=== PATIENT | male | born 1985 | race Caucasian/White ===

== ENCOUNTER 2019-08-16 15:52 | Emergency (ER) | payer MEDICAID ==
[~2019-08-16] VITALS: Ht 167.6 cm; Wt 63.3 kg
[~2019-08-16 15:52] MED LIST: CLIN300C8 PO
[2019-08-16 15:55] VITALS: BP 153/109
--- NOTE | 2019-08-16 17:16 | NUR ---
REVIEW RN: PT TO ROOM FROM [facility]
[2019-08-16] MEDS ORDERED: HYDROcodone/APAP 5/325 TABLET ONE (17:44)
[2019-08-16] MEDS ORDERED: HYDROcodone/APAP 5/325 TABLET PO ONE (18:00)
== END 2019-08-16 17:54 | disposition home or self-care (01) ==
LOC: ED 17:35
DX: K08.89 Other specified disorders of teeth and supporting structures (principal); R51 Headache
CPT/HCPCS: 99282; 99283

== ENCOUNTER 2019-10-29 18:22 | Emergency (ER) | payer MEDICAID ==
[~2019-10-29] VITALS: Ht 167.6 cm; Wt 54.9 kg
[2019-10-29 18:34] VITALS: BP 152/95
--- NOTE | 2019-10-29 21:53 | NUR ---
patient was called several times in the lobby, no answer.
== END 2019-10-29 21:59 | disposition left against medical advice (07) ==
LOC: ED 21:00
DX: R00.0 Tachycardia, unspecified (principal); F48.8 Other specified nonpsychotic mental disorders
CPT/HCPCS: 99281

== ENCOUNTER 2021-01-09 19:08 | Emergency (ER) | payer MEDICAID ==
[~2021-01-09] VITALS: Ht 167.6 cm; Wt 58.5 kg
[~2021-01-09 19:08] MED LIST changes: -CLIN300C8 PO; +CLIN300C9 PO
[2021-01-09 19:13] VITALS: BP 144/84
[2021-01-09] MEDS ORDERED: FAMOTIDINE 20 MG TABLET PO ONE (19:30)
[2021-01-09] MEDS ORDERED: DIPHENHYDRAMINE 25 MG CAPSULE PO ONE (19:30)
--- NOTE | 2021-01-09 22:12 | NUR ---
pt to room from lobby
[2021-01-09] MEDS ORDERED: DIPHENHYDRAMINE 50 MG CAPSULE ONE (22:31)
[2021-01-09] MEDS ORDERED: FAMOTIDINE 20 MG TABLET ONE (22:31)
--- NOTE | 2021-01-09 22:35 | NUR ---
FIRST CONTACT: PATIENT REPORTS HE HAS BEEN HAVING AN ALLERGIC REACTION SINCE THIS MORNING. HE IS NOT SURE WHAT THE REACTION IS FROM. PATIENT POOR HISTORIAN
[2021-01-09] MEDS ORDERED: ONDANSETRON ODT 4 MG ONE (22:41)
--- NOTE | 2021-01-09 22:44 | NUR ---
Patient given discharge instructions and they have confirmed that they understand the instructions. Patient ambulatory with steady gait. NAD, all questions answered appropriately, denies additional needs at this time. No personal belongings left in room after discharge.
--- NOTE | 2021-01-09 22:48 | NUR ---
TASK RN: PT INITIALLY C/O NAUSEA. VERBAL ORDER RECEIVED FROM ERP FOR ZOFRAN 4MG ODT WHICH PT REFUSED. DC EDUCATION PROVIDED TO PT WHO IMMEDIATELY TORE UP INSTRUCTIONS AND THREW THEM IN THE GARBAGE. PT AMBULATED STEADILY TO DC DESK WITH RN, "YOU DIDN'T EVEN TAKE BLOOD. DON'T LIE TO ME- I CAN HEAR YOUR THOUGHTS". PT WITH STEADY GAIT AND DRESSED APPROPRIATELY FOR WEATHER.
== END 2021-01-09 22:46 | disposition home or self-care (01) ==
LOC: ED 19:30
DX: L50.9 Urticaria, unspecified (principal); F17.200 Nicotine dependence, unspecified, uncomplicated
CPT/HCPCS: 99284; J7512; Q0163